=== PATIENT | female | born 1975 | race Caucasian/White ===

== ENCOUNTER 2019-07-31 10:41 | Outpatient (CLI) | payer BC ==
--- NOTE | 2019-08-03 00:14 | EKG ---
Test Reason : PALPATATION Blood Pressure : / mmHG Vent. Rate : 077 BPM Atrial Rate : 077 BPM P-R Int : 168 ms QRS Dur : 082 ms QT Int : 366 ms P-R-T Axes : 040 062 049 degrees QTc Int : 414 ms Normal sinus rhythm Normal ECG No previous ECGs available Confirmed by Oneida VILLARREAL ([id number]) on 08/03/2019 12:14:23 AM Referred By: [email or web address] Confirmed By:Oneida VILLARREAL
== END 2019-07-31 10:42 | disposition home or self-care (01) ==
LOC: EKG 10:41
PROVIDERS: ATTEND Obstetrics & Gynecology
DX: R00.2 Palpitations (principal)
CPT/HCPCS: 93005; 93010